=== PATIENT | female | born 1990 | race Asian ===

== ENCOUNTER 2019-09-04 14:14 | Observation (INO) | payer MEDICAID ==
[~2019-09-04] VITALS: Ht 149.9 cm; Wt 70.8 kg
[2019-09-04] MEDS ORDERED: PREN-380 PO (15:08)
[2019-09-04] MEDS ORDERED: FERR325E14 PO (15:08)
[2019-09-04 16:44] LABS: BASOPHILS % (AUTO) 0.3 % (0.0-2.0); EOSINOPHILS # (AUTO) 0.1 K/uL (0-0.4); EOSINOPHILS % (AUTO) 0.6 % (0.0-4.0); HEMATOCRIT 36.6 % (36-48); HEMOGLOBIN 12.3 g/dL (12.0-16.0); LYMPHOCYTES # (AUTO) 1.1 K/uL (2.5-16.5); LYMPHOCYTES % (AUTO) 10.6 % (20.5-51.1); MEAN CORPUSCULAR HEMOGLOBIN 33 pg (27-31); MEAN CORPUSCULAR HGB CONC 34 g/dL (33-37); MEAN CORPUSCULAR VOLUME 97.8 fL (80-94); MONOCYTES # (AUTO) 0.8 K/uL (0.8-1.0); MONOCYTES % (AUTO) 7.2 % (1.7-9.3); NEUTROPHILS # (AUTO) 8.6 K/uL (1.8-7.7); NEUTROPHILS % (AUTO) 81.3 % (42.2-75.2); PLATELET COUNT (AUTO) 241 K/uL (140-450); RED BLOOD CELL COUNT(AUTO) 3.74 MIL/uL (4.20-5.40); RED CELL DISTRIBUTION WIDTH 12.3 % (11.6-13.7); WHITE BLOOD COUNT (AUTO) 10.5 K/uL (4.8-10.8)
[2019-09-04] MEDS ORDERED: BETAMETH ACET/BETAMETH NA PH 30 MG/5 ML VIAL IM SCH (18:00)
[2019-09-04] MEDS ORDERED: BETAMETH ACET/BETAMETH NA PH 30 MG/5 ML VIAL IM ONE (18:00)
--- NOTE | 2019-09-05 08:57 | NUR ---
PATIENT HAS BEEN SCREENED AND CATEGORIZED LOW NUTRITION RISK. PATIENT WILL BE SEEN WITHIN 7 DAYS OF ADMISSION. 09/11/[address]
[2019-09-05] MEDS ORDERED: BETAMETH ACET/BETAMETH NA PH 30 MG/5 ML VIAL IM ONE (18:35)
== END 2019-09-05 20:05 | disposition home or self-care (01) ==
LOC: MLD 14:14 → MFCC 18:58
PROVIDERS: ADMIT Obstetrics & Gynecology; ATTEND Obstetrics & Gynecology
DX: O9A.213 Injury, poisoning and certain other consequences of external causes complicating pregnancy, third trimester (principal); O36.8130 Decreased fetal movements, third trimester, not applicable or unspecified; S20.02XA Contusion of left breast, initial encounter; S20.212A Contusion of left front wall of thorax, initial encounter; S30.1XXA Contusion of abdominal wall, initial encounter; Z3A.29 29 weeks gestation of pregnancy; V49.9XXA Car occupant (driver) (passenger) injured in unspecified traffic accident, initial encounter; Y93.89 Activity, other specified; Y92.488 Other paved roadways as the place of occurrence of the external cause
CPT/HCPCS: 36415; 76817; 76819; 81000; 85025; 85384; 86886; 86900; 86901; 96372; G0378; J0702; Q0092

== ENCOUNTER 2019-11-16 16:52 | Inpatient (IN) | payer OTHER ==
[~2019-11-16] VITALS: Ht 149.9 cm; Wt 81.2 kg
[~2019-11-16 16:52] MED LIST: FERR325E14 PO; PREN-380 PO
[2019-11-16] MEDS ORDERED: PROMETHAZINE 25 MG/ML VIAL IVP PRN (17:25)
[2019-11-16] MEDS ORDERED: CARBOPROST 250 MCG/ML AMP IM PRN (17:25)
[2019-11-16] MEDS ORDERED: NALBUPHINE 10 MG/ML AMP IVP PRN (17:25)
[2019-11-16] MEDS ORDERED: OXYTOCIN 20 UNITS in LACTATED RINGERS 1,000 ML IV SCH (17:25)
[2019-11-16] MEDS ORDERED: METHYLERGONOVINE 0.2 MG/ML AMP IM PRN (17:25)
[2019-11-16 18:00] VITALS: BP 103/68
[2019-11-16] MEDS ORDERED: MISOPROSTOL 200 MCG TAB VG SCH (18:00)
[2019-11-16 18:02] LABS: BASOPHILS % (AUTO) 0.3 % (0.0-2.0); EOSINOPHILS # (AUTO) 0.1 K/uL (0-0.4); EOSINOPHILS % (AUTO) 0.6 % (0.0-4.0); HEMATOCRIT 38.6 % (36-48); HEMOGLOBIN 13.1 g/dL (12.0-16.0); LYMPHOCYTES # (AUTO) 1.5 K/uL (2.5-16.5); LYMPHOCYTES % (AUTO) 13.7 % (20.5-51.1); MEAN CORPUSCULAR HEMOGLOBIN 33 pg (27-31); MEAN CORPUSCULAR HGB CONC 34 g/dL (33-37); MEAN CORPUSCULAR VOLUME 97.1 fL (80-94); MONOCYTES # (AUTO) 0.9 K/uL (0.8-1.0); MONOCYTES % (AUTO) 8.1 % (1.7-9.3); NEUTROPHILS # (AUTO) 8.4 K/uL (1.8-7.7); NEUTROPHILS % (AUTO) 77.3 % (42.2-75.2); PLATELET COUNT (AUTO) 242 K/uL (140-450); RED BLOOD CELL COUNT(AUTO) 3.98 MIL/uL (4.20-5.40); WHITE BLOOD COUNT (AUTO) 10.9 K/uL (4.8-10.8)
[2019-11-16] MEDS: LACTATED RINGERS 1,000 ML IV SCH (18:14)
[2019-11-16 18:30] LABS: APPEARANCE,URINE CLEAR (CLEAR); BILIRUBIN,URINE NEGATIVE (NEGATIVE); BLOOD, URINE NEGATIVE (NEGATIVE); COLOR,URINE YELLOW (YELLOW); LEUKOCYTE ESTERASE ,URINE NEGATIVE (NEGATIVE); NITRITE, URINE NEGATIVE (NEGATIVE); PH,URINE 6.5 (5.0-9.0); UGLUCOSE NEGATIVE (NEGATIVE)
[2019-11-16 18:39] LABS: ALBUMIN 2.9 g/dL (3.4-5.0); ANION GAP 15.7 (8-16); CARBON DIOXIDE 22.2 mmol/L (21-32); CREATININE 0.5 mg/dL (0.6-1.3); POTASSIUM 3.9 mmol/L (3.5-5.1); TOTAL BILIRUBIN 0.2 mg/dL (0.0-1.0)
[2019-11-16] MEDS ORDERED: fentaNYL 0.05 MG/ML VIAL IVP PRN (23:35)
--- NOTE | 2019-11-17 08:16 | NUR ---
PATIENT HAS BEEN SCREENED AND CATEGORIZED LOW NUTRITION RISK. PATIENT WILL BE SEEN WITHIN 7 DAYS OF ADMISSION. 11/23/[address]
[2019-11-17] MEDS: LACTATED RINGERS 1,000 ML IV SCH (10:33)
[2019-11-17] MEDS ORDERED: EPIDURAL KEYS MC ONE (14:34)
[2019-11-17] MEDS ORDERED: ROPIVACAINE 0.2%/NS PREMIX 200 ML EPI ONE (14:36)
[2019-11-17] MEDS ORDERED: OXYTOCIN 10 UNITS/ML VIAL IM PRN (17:50)
[2019-11-17] MEDS ORDERED: METHYLERGONOVINE 0.2 MG TAB PO PRN (17:50)
[2019-11-17] MEDS ORDERED: IBUPROFEN 600 MG TAB PO PRN (17:50)
[2019-11-17] MEDS ORDERED: BISACODYL 5 MG TABEC PO PRN (17:50)
[2019-11-17] MEDS ORDERED: BENZOCAINE/MENTHOL 20%-0.5% 60 GM CAN TP PRN (17:50)
[2019-11-17] MEDS ORDERED: METHYLERGONOVINE 0.2 MG/ML AMP IM PRN (17:50)
[2019-11-17] MEDS ORDERED: MEASLES, MUMPS, AND RUBELLA 1 VIAL SQVAC PRN (17:50)
[2019-11-18] MEDS: IBUPROFEN 800 MG TAB PO PRN ×3 (03:12→20:31)
[2019-11-18 08:10] LABS: HEMATOCRIT 33.4 % (36-48); HEMOGLOBIN 11.3 g/dL (12.0-16.0)
[2019-11-19] MEDS: IBUPROFEN 800 MG TAB PO PRN (11:24)
== END 2019-11-19 15:00 | disposition home or self-care (01) | DRG 560 ==
LOC: MFCC 16:52
PROVIDERS: ADMIT Obstetrics & Gynecology; ATTEND Obstetrics & Gynecology
PROC: 10E0XZZ Delivery of Products of Conception, External Approach (ICD-10-PCS; principal; 2019-11-17)
PROC: 10907ZC Drainage of Amniotic Fluid, Therapeutic from Products of Conception, Via Natural or Artificial Opening (ICD-10-PCS; 2019-11-17)
PROC: 3E033VJ Introduction of Other Hormone into Peripheral Vein, Percutaneous Approach (ICD-10-PCS; 2019-11-17)
PROC: 0HQ9XZZ Repair Perineum Skin, External Approach (ICD-10-PCS; 2019-11-17)
PROC: 00HU33Z Insertion of Infusion Device into Spinal Canal, Percutaneous Approach (ICD-10-PCS; 2019-11-17)
PROC: 3E0R3BZ Introduction of Anesthetic Agent into Spinal Canal, Percutaneous Approach (ICD-10-PCS; 2019-11-17)
PROC: 3E0234Z Introduction of Serum, Toxoid and Vaccine into Muscle, Percutaneous Approach (ICD-10-PCS; 2019-11-18)
DX: O48.0 Post-term pregnancy (principal); D64.9 Anemia, unspecified; O70.0 First degree perineal laceration during delivery; Z37.0 Single live birth; Z3A.41 41 weeks gestation of pregnancy; Z23 Encounter for immunization
CPT/HCPCS: 36415; 51702; 59409; 76815; 80053; 81003; 85018; 85025; 86592; 86886; 86900; 86901; 90715; J2300; J2550; J2795; J3010; J7120; Q0092